=== PATIENT | male | born 1955 | race Caucasian/White ===

== ENCOUNTER 2018-11-13 17:40 | Inpatient (IN) | payer OTHER ==
[2018-11-13 18:54] LABS: Hemoglobin 11.4 g/dL (14.0-18.0); Mean Corpuscular HGB CONC 34.4 g/dL (32.0-36.0); Mean Corpuscular Hemoglobin 30.5 pg (27.0-31.0); Mean Corpuscular Volume 88.8 fL (78.0-98.0); Mean Platelet Volume 7.5 fL (7.4-10.4); Platelet Count 132 thou/uL (130-400); RBC Distribution Width 15.3 % (11.5-14.5); Red Blood Cell (RBC) Count 3.74 mill/uL (4.70-6.10); White Blood Cell (WBC) Count 7.6 thou/uL (4.8-10.8)
[2018-11-13 19:09] LABS: Anisocytosis SLIGHT = 6-15 cells (100X) (0-5/hpf); Eosinophils 1 % (0-10); Lymphocytes 11 % (21-51); MDiff Complete? YES; Monocytes 12 % (0-10); Neutrophil 76 % (42-75); PLT Morphology Comment Appears Adequate; Polychromasia SLIGHT = 2-3 cells (100X) (0-2/hpf)
[2018-11-13 19:11] LABS: ALT (SGPT) 35 U/L (8-55); AST (SGOT) 43 U/L (5-34); Albumin 3.2 g/dL (3.4-4.8); Alkaline Phosphatase 134 U/L (40-150); Anion Gap 15 mmol/L (10-20); BUN (Urea Nitrogen) 44 mg/dL (8.4-25.7); Bilirubin, Total 1.4 mg/dL (0.2-1.2); Calc. Creatinine Clearance 0 mL/min (70-130); Calcium 8.9 mg/dL (7.8-10.44); Carbon Dioxide 16 mmol/L (23-31); Chloride 96 mmol/L (98-107); Estimated GFR-MDRD 40; Globulin 3.6 g/dL (2.4-3.5); Glucose 102 mg/dL (80-115); Potassium 5.4 mmol/L (3.5-5.1); Protein, Total 6.8 g/dL (5.8-8.1); Sodium 122 mmol/L (136-145)
--- NOTE | 2018-11-13 19:12 | CT ---
CT BRAIN 11/13/18 PROVIDED CLINICAL HISTORY: Altered mental status. FINDINGS: The ventricular system appears normal in size and morphology. There is no evidence for intracranial h emorrhage or mass effect. The extracranial soft tissues and osseous structures demonstrate an unremar kable CT appearance. IMPRESSION: No evidence for intracranial hemorrhage or mass effect. POS: AICHA
[2018-11-13] MEDS ORDERED: Naloxone HCl 0.4 mg/ml Vial ONE ×2 (21:04→22:59)
[2018-11-13] MEDS ORDERED: Sodium Chloride 0.9% 1,000 ML IV SCH ×2 (21:45)
[2018-11-14 01:52] LABS: Bilirubin Negative (Negative); Blood, Urine Negative (Negative); Clarity CLEAR (Clear); Glucose, Urine (Dipstick) Negative (Negative); Leukocyte Negative (Negative); Nitrite Negative (Negative); Protein, Urine (Dipstick) Negative (Neg-Trace); Specific Gravity, Urine 1.015 (1.002-1.036); Urobilinogen 0.2 mg/dL (0.2-1.0)
--- NOTE | 2018-11-14 03:10 | HP ---
CHIEF COMPLAINT: Altered mental status. HISTORY OF PRESENT ILLNESS: This patient is a 63-year-old, [facility] inmate from the [facility]. The patient was apparently brought to the emergency department because of altered mental status. The patient was initially unable to give any history. However, his initial lab work indicated significant hyponatremia, mild hyperkalemia, ammonia level that was 82, and it was felt the patient might be having some hepatic encephalopathy. In the emergency department, the patient became somewhat bradypnic and borderline hypotensive. In reviewing his medication list, it was apparent that the patient was on some long-acting morphine. Therefore, he received a dose of Narcan. Subsequent to that, the patient has awakened somewhat and was able to give me some minimal amount of history at least. The patient reports that he has only been on the morphine for a couple of days. In reviewing his records from [facility], it does appear that this was actually prescribed yesterday. He also admits to having a history of hepatitis with cirrhosis. He has had hospitalizations in the past related to his liver. He denies having any knowledge of any prior renal disease. REVIEW OF SYSTEMS: Largely unobtainable at this point, although the patient does admit that he has been losing weight. He is still a bit groggy and unable to give a whole lot of other detailed history. PAST MEDICAL HISTORY: Again notable for known cirrhosis secondary to hepatitis C and chronic back pain. He denies ever having had any prior surgeries. SOCIAL HISTORY: The patient admits to history of alcohol, tobacco, and drug abuse, but cannot get more details. FAMILY HISTORY: Essentially unobtainable. He is not giving any indication that there is any significant family history. ALLERGIES: CARBAMAZEPINE. MEDICATIONS: 1. Osmolite liquid daily. 2. Promethazine 25 mg 1 p.o. b.i.d. p.r.n. 3. Proventil HFA 2 puffs q.i.d. p.r.n. 4. Aldactone 25 mg, record indicates that 8 tablets 2 times a day. 5. Thiamine 100 mg 1 p.o. daily. 6. Atrovent 2 puffs q.i.d. 7. Baclofen 10 mg daily. 8. Duloxetine 60 mg daily. 9. Folic Acid 1 mg daily. 10. Lasix 40 mg b.i.d. 11. Lactulose 40 g q.i.d. 12. Levothyroxine 25 mcg daily. 13. Morphine 15 mg p.o. b.i.d. PHYSICAL EXAMINATION: VITAL SIGNS: Most recent set of vital signs recorded, BP 196/72, pulse 91, respirations 16, temperature 97.7, O2 saturation 98% on 2 L. The patient has improved respiratory rate following the Narcan. GENERAL APPEARANCE: The patient is a male who appears older than his stated age. He is still fairly somnolent, but appears to be slowly improving. He is in no distress. HEENT: Pupils are midpoint and modestly reactive. He has no OP lesions, but very dry oral mucosa. NECK: Supple and symmetric. HEART: Regular rate and rhythm without murmurs. LUNGS: Clear bilaterally, although he is not able to fully cooperate with exam. ABDOMEN: Soft and nondistended. He indicates some mild discomfort in the right upper quadrant, but that is all. There are no masses palpable. EXTREMITIES: Dry without cyanosis, clubbing, or edema. His lower extremities are slightly cool to touch. LABORATORY DATA: White count 7.6, hemoglobin 11.4, platelets 132, 76% neutrophils, 11 lymphocytes, 12 monocytes. Sodium 122, potassium 5.4, chloride 96, CO2 is 16, BUN 44, creatinine is 1.75, glucose 102, calcium 8.9, total bilirubin 1.4, AST 43, ALT is 35, alkaline phosphatase 134, ammonia 86, albumin 3.2. CT scan of the brain, no evidence of any acute processes. EKG, no ischemic changes. IMPRESSION AND PLAN: 1. Altered mental status. It appears at this point that the patient is experiencing sedation from the newly started opioids. He has responded reasonably well to 0.4 of Narcan. We will go ahead and keep him in observation and admitted to the hospital. I will hold any sedating medications. We will give additional Narcan should he become bradypnic again. 2. Hyponatremia. It is unclear if this is the patient's baseline. I suspect it is secondary to both intravascular depletion from dehydration on the diuretics and possibly poor p.o. intake as well as his chronic liver disease. We will gently hydrate. Hold his diuretics and see how he will look tomorrow. 3. Mild hyperkalemia, also likely due to some intravascular depletion and prerenal azotemia. We will hydrate and re-evaluate in the morning. We will also give a little bit of hydrocortisone given low sodium and high potassium as well as his borderline blood pressures. 4. Prerenal azotemia secondary to intravascular depletion and dehydration. The patient is on diuretics and looks like he has probably had some poor p.o. intake. We will gently hydrate and re-evaluate in the morning. 5. Chronic liver disease with hepatitis and cirrhosis. We will continue the patient on his lactulose. 6. Hyperammonemia. The patient actually does not appear to be overly encephalopathic. When he can get awaken up, he is actually answering questions fairly appropriately. Therefore, I am going to keep him on his lactulose and recheck his levels in the morning. He may need some rifaximin, however, not clear that is going to be indicated at this time. 7. Suspect the patient has hypothyroidism given his thyroid medication. We will continue with that. 8. Chronic back pain, holding his baclofen and morphine until he can come more awake. Once he does, he will probably need to go back on the baclofen to avoid any significant withdrawal. It is unclear if that is new or old to his regimen. DISPOSITION: We will keep the patient full code as I do not think he can adequately have conversation regarding code status at this time. Job ID: [id number]
[2018-11-14 03:52] LABS: #Eosinphils 0.1 thou/uL (0.0-0.7); #Lymphocytes 1.1 thou/uL (1.20-3.40); #Monocytes 1.2 thou/uL (0.11-0.59); #Neutrophils 5.6 thou/uL (1.40-6.50); %Basophils 0.4 % (0.0-1.0); %Eosinophils 0.8 % (0.0-10.0); %Lymphocytes 13.5 % (21.0-51.0); %Monocytes 14.9 % (0.0-10.0); %Neutrophils 70.4 % (42.0-75.0); Mean Corpuscular HGB CONC 34.7 g/dL (32.0-36.0); Mean Corpuscular Hemoglobin 30.9 pg (27.0-31.0); Mean Corpuscular Volume 89.1 fL (78.0-98.0); Mean Platelet Volume 7.8 fL (7.4-10.4); Platelet Count 126 thou/uL (130-400); RBC Distribution Width 15.3 % (11.5-14.5); Red Blood Cell (RBC) Count 3.57 mill/uL (4.70-6.10); White Blood Cell (WBC) Count 7.9 thou/uL (4.8-10.8)
[2018-11-14 04:11] LABS: ALT (SGPT) 35 U/L (8-55); AST (SGOT) 39 U/L (5-34); Albumin 3.1 g/dL (3.4-4.8); Alkaline Phosphatase 126 U/L (40-150); Anion Gap 16 mmol/L (10-20); BUN (Urea Nitrogen) 43 mg/dL (8.4-25.7); Bilirubin, Total 1.4 mg/dL (0.2-1.2); Calc. Creatinine Clearance 0 mL/min (70-130); Carbon Dioxide 17 mmol/L (23-31); Chloride 99 mmol/L (98-107); Estimated GFR-MDRD 40; Globulin 3.4 g/dL (2.4-3.5); Glucose 97 mg/dL (80-115); Potassium 5.6 mmol/L (3.5-5.1); Protein, Total 6.5 g/dL (5.8-8.1); Sodium 126 mmol/L (136-145)
[2018-11-14] MEDS ORDERED: Hydrocortisone Sod Succ/PF 100 mg/2 ml Vial ONE ×2 (09:25→15:01)
[2018-11-14] MEDS ORDERED: Folic Acid 1 MG TAB ONE (09:25)
--- NOTE | 2018-11-14 14:14 | CON ---
DATE OF CONSULTATION: 11/14/2018 GI INPATIENT CONSULTATION NOTE. REQUESTING PHYSICIAN: Pasha Christensen MD REASON FOR CONSULTATION: Hepatic encephalopathy. HISTORY OF PRESENT ILLNESS: Reinaldo García is a 63-year-old man, an inmate from [facility], who was transferred here to the emergency department last night with altered mental status. The patient is really not able to give any significant history. He is awake, but not really alert. He can answer directed questions if asked repeatedly, but not with any specificity. Apparently, he had been started on long-acting morphine just within the past few days. Upon presentation, he was having slow respirations and evidently responded fairly well at least initially to Narcan. He had a CT head, which showed no acute processes and labs demonstrated some electrolyte abnormalities including hyponatremia and hyperkalemia as well as elevated ammonia level. Lactulose is on his medication list. He really cannot tell me anything about his prior history. I asked if he had a liver problem and he said yes. I asked what the problem was and he said cancer. This was the first I had heard of this and I really have very limited records to go on. His cirrhosis is evidently secondary to hepatitis C. He does have thrombocytopenia and mild elevation in total bilirubin which are consistent with cirrhosis. PAST MEDICAL HISTORY: 1. Cirrhosis, apparently secondary to hepatitis C. 2. Chronic back pain. REVIEW OF SYSTEMS: Unable to obtain complete review of systems due to the patient's altered mental status. SOCIAL HISTORY: He admits to prior history of smoking and alcohol abuse. He denies drug abuse other than cigarettes. ALLERGIES: CARBAMAZEPINE. OUTPATIENT MEDICATIONS: 1. Osmolite liquid daily. 2. Promethazine p.r.n. 3. Proventil HFA two puffs q.i.d. p.r.n. 4. Aldactone, record states 200 mg twice daily. 5. Lasix 40 mg twice daily. 6. Thiamine 100 mg daily. 7. Atrovent inhaler. 8. Baclofen 10 mg daily. 9. Duloxetine 60 mg daily. 10. Folic acid 1 mg daily. 11. Lactulose 40 g q.i.d. 12. Levothyroxine 25 mcg daily. 13. Morphine 15 mg p.o. b.i.d. PHYSICAL EXAMINATION: VITAL SIGNS: Blood pressure 120/76, pulse 94, and 100% oxygen saturation on 2 L nasal cannula. GENERAL: Thin, 63-year-old man, sitting up in bed comfortably, in no distress. He is awake, but not very alert. He is oriented to person, but not place or time. He can give only very limited details about current symptoms and history. MENTAL STATUS: He is able to follow simple commands and give only limited detailed history. He does not answer all questions and has to be constantly redirected. SKIN: No jaundice. No rashes were visible or palpable. Multiple tattoos to the torso and arms. EYES: No scleral icterus. Extraocular movements intact. ENT: Mucous membranes moist. No oral lesions. LYMPH: No submandibular or supraclavicular lymphadenopathy. THYROID: Nontender to palpation. HEART: Regular rate and rhythm. LUNGS: Clear to auscultation bilaterally. ABDOMEN: Nondistended. Bowel sounds present. Soft and nontender to palpation. EXTREMITIES: No peripheral edema. VESSELS: Radial pulses 2+ bilaterally. NEUROLOGIC: Cranial nerves 2 through 12 are intact bilaterally. He moves all extremities well. No asterixis. LABORATORY STUDIES: WBC is 7.9, hemoglobin 11.0, platelets 126. Sodium 126, potassium 5.6, BUN 43, creatinine 1.76. Total bilirubin 1.4, alkaline phosphatase 126, AST 39, ALT 35, albumin 3.1, ammonia 88. BNP 18. Urinalysis negative. IMAGING STUDIES: CT of the head showed no acute processes. ASSESSMENT AND PLAN: 1. Hepatic encephalopathy, recurrent. The patient is on quite a large dose of lactulose at least by reviewing his outside medication record sheet. So, he likely has a prior diagnosis of hepatic encephalopathy. The elevated ammonia level is consistent. Some of this may be multifactorial though, secondary to him just having started long-acting morphine. It is unclear what his baseline renal function is as well. It is unclear what his adherence to lactulose is. I would continue with the lactulose q.i.d. at this time. Go ahead and add rifaximin 550 mg twice daily as well. 2. Cirrhosis, apparently secondary to hepatitis C. His presentation is certainly consistent with cirrhosis. I am not sure it is necessary to perform full liver workup here as this has likely already been done and he is followed within the [facility] system. However, given that he states he has apparently been told he has liver cancer, we ought to look into this. It may just be that he is confused. But, we will get an abdominal ultrasound and an AFP level with tomorrow's labs. Thank you for the consultation. Please call anytime with questions or concerns. Job ID: [id number]
[2018-11-14 14:36] LABS: Anion Gap 13 mmol/L (10-20); BUN (Urea Nitrogen) 43 mg/dL (8.4-25.7); Calc. Creatinine Clearance 0 mL/min (70-130); Calcium 9.1 mg/dL (7.8-10.44); Carbon Dioxide 20 mmol/L (23-31); Chloride 98 mmol/L (98-107); Estimated GFR-MDRD 39; Glucose 114 mg/dL (80-115); Potassium 5.9 mmol/L (3.5-5.1); Sodium 125 mmol/L (136-145)
[2018-11-14] MEDS: Levothyroxine Sodium 25 MCG TAB PO SCH (15:47)
[2018-11-14] MEDS: Folic Acid 1 MG TAB PO SCH (15:48)
[2018-11-14] MEDS: DULoxetine 60 MG CAP PO SCH (15:49)
[2018-11-14] MEDS: Hydrocortisone Sod Succ/PF 100 mg/2 ml Vial IVP SCH ×4 (17:32→21:28)
[2018-11-14] MEDS: Sodium Bicarbonate 100 MEQ in Sodium Chloride 0.45% 1,000 ML IV SCH (17:51)
[2018-11-14 20:05] VITALS: BMI 20.4
[2018-11-14] MEDS: Rifaximin 550 MG TAB PO SCH (21:28)
--- NOTE | 2018-11-14 21:36 | PDOC.PN ---
- Subjective Encounter Start Date: 11/14/18 Encounter Start Time: 08:30 Patient seen and examined for Encephalopathy. Somnolent. No new complaints. No overnight events - Objective Resuscitation Status - Order Detail: 11/13/18 21:32 Resuscitation Status Routine Resuscitation Status: FULL: Full Resuscitation MAR Reviewed: Yes Vital Signs & Weight: Vital Signs (12 hours) Temp Pulse Resp BP Pulse Ox 11/14/18 16:45 98.0 F 99 16 136/69 100 Weight Weight 138 lb 8 oz Result Diagrams: 11/15/18 05:44 11/15/18 05:44 Additional Labs: Laboratory Tests 11/14/18 11/14/18 03:40 14:10 Potassium 5.6 H 5.9 H EKG Reviewed by me: Yes (Tele SR) Phys Exam - Physical Examination Constitutional: NAD HEENT: PERRLA, moist MMs Neck: no nodes, no JVD Respiratory: no wheezing, no rales, no rhonchi, clear to auscultation bilateral Cardiovascular: RRR, no rub no heaves/pulsations Gastrointestinal: soft, non-tender, no distention, positive bowel sounds no guarding/rigidity Musculoskeletal: no edema, pulses present Neurological: non-focal, normal sensation, moves all 4 limbs Flapping tremors + Psychiatric: normal affect, A&O x 3 (slow to respond) Skin: no rash Dx/Plan (1) Hepatic encephalopathy Code(s): K72.90 - HEPATIC FAILURE, UNSPECIFIED WITHOUT COMA Status: Acute Comment: (Toxic Metabolic Encephalopathy) (2) Chronic hepatitis C with cirrhosis Code(s): B18.2 - CHRONIC VIRAL HEPATITIS C; K74.60 - UNSPECIFIED CIRRHOSIS OF LIVER Status: Acute (3) HANH (acute kidney injury) Code(s): N17.9 - ACUTE KIDNEY FAILURE, UNSPECIFIED Status: Acute (4) Hyperkalemia Code(s): E87.5 - HYPERKALEMIA Status: Acute (5) Chronic pain syndrome Code(s): G89.4 - CHRONIC PAIN SYNDROME Status: Chronic (6) Depression Code(s): F32.9 - MAJOR DEPRESSIVE DISORDER, SINGLE EPISODE, UNSPECIFIED Status : Chronic (7) Hypothyroidism Code(s): E03.9 - HYPOTHYROIDISM, UNSPECIFIED Status: Chronic - Plan DVT proph w/SCDs * Add bicarb to IVF * AM labs * Consult GI * Cont Lactulose * Cont Stress dose steroids - started on admission * Hold Narcotics * Repeat labs later today Review of Systems - Review of Systems Cardiovascular: negative: chest pain, palpitations, orthopnea, paroxysmal nocturnal dyspnea, edema, light headedness, other Gastrointestinal: negative: Nausea, Vomiting, Abdominal Pain, Diarrhea, Constipation, Melena, Hematochezia, Other - Medications/Allergies Allergies/Adverse Reactions: Allergies Allergy/AdvReac Type Severity Reaction Status Date / Time carbamazepine Allergy Verified 11/14/18 18:38 Medications: Current Medications Albuterol/Ipratropium (Duoneb) 3 ml NEB [id number] PRN PRN Reason: SOB &/or Wheezing Duloxetine HCl (Cymbalta) 60 mg PO DAILY [facility] Last Admin: 11/14/18 15:49 Dose: Not Given Folic Acid (Folvite) 1 mg PO DAILY [facility] Last Admin: 11/14/18 15:48 Dose: Not Given Hydrocortisone Sodium Succinate (Solu-Cortef) 50 mg IVP 0300,0900,1500,2100 [facility] Last Admin: 11/14/18 21:28 Dose: 50 mg Sodium Bicarbonate 100 meq/ (Sodium Chloride) 1,100 mls @ 75 mls/hr IV .[id number] [facility] Last Admin: 11/14/18 17:51 Dose: Not Given Lactulose (Lactulose) 40 gm PO QID [facility] Last Admin: 11/14/18 21:28 Dose: 40 gm Levothyroxine Sodium (Synthroid) 25 mcg PO 0600 [facility] Last Admin: 11/14/18 15:47 Dose: Not Given Rifaximin (Xifaxan) 550 mg PO BID [facility] Last Admin: 11/14/18 21:28 Dose: 550 mg Sodium Chloride (Flush - Normal Saline) 10 ml IVF Q12HR [facility] Last Admin: 11/14/18 21:30 Dose: Not Given Sodium Chloride (Flush - Normal Saline) 10 ml IVF PRN PRN PRN Reason: Saline Flush Last Admin: 11/14/18 17:51 Dose: 10 ml Thiamine HCl (Thiamine) 100 mg PO DAILY [facility] Last Admin: 11/14/18 15:49 Dose: Not Given
[2018-11-15] MEDS: Hydrocortisone Sod Succ/PF 100 mg/2 ml Vial IVP SCH ×2 (03:29→08:25)
[2018-11-15] MEDS: Sodium Bicarbonate 100 MEQ in Sodium Chloride 0.45% 1,000 ML IV SCH ×2 (03:30→17:20)
[2018-11-15 06:20] LABS: #Lymphocytes 0.4 thou/uL (1.20-3.40); #Monocytes 0.4 thou/uL (0.11-0.59); #Neutrophils 5.7 thou/uL (1.40-6.50); %Basophils 0.3 % (0.0-1.0); %Eosinophils 0.1 % (0.0-10.0); %Lymphocytes 5.4 % (21.0-51.0); %Monocytes 5.8 % (0.0-10.0); %Neutrophils 88.4 % (42.0-75.0); Hemoglobin 10.5 g/dL (14.0-18.0); Mean Corpuscular HGB CONC 34.1 g/dL (32.0-36.0); Mean Corpuscular Hemoglobin 30.2 pg (27.0-31.0); Mean Corpuscular Volume 88.4 fL (78.0-98.0); Mean Platelet Volume 7.5 fL (7.4-10.4); Platelet Count 106 thou/uL (130-400); RBC Distribution Width 15.4 % (11.5-14.5); Red Blood Cell (RBC) Count 3.47 mill/uL (4.70-6.10); White Blood Cell (WBC) Count 6.5 thou/uL (4.8-10.8)
[2018-11-15 06:39] LABS: Phosphorus 3.1 mg/dL (2.3-4.7)
[2018-11-15 06:43] LABS: ALT (SGPT) 32 U/L (8-55); AST (SGOT) 38 U/L (5-34); Albumin 3.1 g/dL (3.4-4.8); Alkaline Phosphatase 119 U/L (40-150); Anion Gap 15 mmol/L (10-20); BUN (Urea Nitrogen) 43 mg/dL (8.4-25.7); Bilirubin, Total 1.6 mg/dL (0.2-1.2); Calc. Creatinine Clearance 45 mL/min (70-130); Calcium 8.9 mg/dL (7.8-10.44); Carbon Dioxide 21 mmol/L (23-31); Chloride 97 mmol/L (98-107); Estimated GFR-MDRD 45; Globulin 3.5 g/dL (2.4-3.5); Glucose 108 mg/dL (80-115); Magnesium 2.2 mg/dL (1.6-2.6); Protein, Total 6.6 g/dL (5.8-8.1); Sodium 128 mmol/L (136-145)
[2018-11-15] MEDS: Folic Acid 1 MG TAB PO SCH (08:24)
[2018-11-15] MEDS: DULoxetine 60 MG CAP PO SCH (08:24)
[2018-11-15] MEDS: Levothyroxine Sodium 25 MCG TAB PO SCH (08:24)
[2018-11-15] MEDS: Rifaximin 550 MG TAB PO SCH ×2 (08:26→22:10)
--- NOTE | 2018-11-15 08:26 | ULT ---
GALLBLADDER ULTRASOUND: HISTORY: Cirrhosis. Evaluate for hepatic masses. The patient states he was diagnosed with liver cancer. COMPARISON: None. TECHNIQUE: Utilizing a Multi-Hertz transducer, sonographic imaging of the right upper quadrant was performed in the longitudinal and transverse planes. FINDINGS: Examination is markedly limited. Limited evaluation of the pancreas and liver. If there is concern for hepatic masses, a CT scan be performed. There is a hypoechoic focus involving the lower pole of the right kidney, incompletely evaluated. Gr ossly, no hydronephrosis. Grossly, no evidence of cholecystitis. IMPRESSION: Limited evaluation. If there is concern, consider CT. CT should be performed using a liver mass pro tocol. POS: GEOVANNI
--- NOTE | 2018-11-15 14:04 | PRG ---
DATE OF SERVICE: 11/15/2018 GI INPATIENT DAILY PROGRESS NOTE SUBJECTIVE: Mr. García is much more awake today. He is able to converse and answer questions appropriately. He complains of a bit of right-sided abdominal pain, which he says it is chronic and has been characterized as secondary to his liver disease in the past. He has not had a bowel movement yet today. He is feeling hungry and ready to start his diet. He again tells me that he believes he was told that he probably had liver cancer, but he cannot recall any proposed treatment plan or any other details regarding this. He has seen cash surrender calculator down in [place]. OBJECTIVE: VITAL SIGNS: Temperature 98.4, pulse 102, blood pressure 100/62, and 99% oxygen saturation on room air. GENERAL: No acute distress. HEART: Regular rate and rhythm. LUNGS: Clear to auscultation bilaterally. ABDOMEN: Nondistended. Bowel sounds present. Soft. Some tenderness to palpation in the right abdomen. No guarding or rebound tenderness. EXTREMITIES: No peripheral edema. LABORATORY STUDIES: WBC 6.5, hemoglobin 10.5, platelets 106. Sodium 128, potassium 5.0, BUN 43, creatinine down to 1.56. Total bilirubin 1.6, alkaline phosphatase 119, AST 38, ALT 32, phosphorus 3.1, albumin 3.1, and AFP is only 2.9. IMAGING STUDIES: Abdominal ultrasound was performed early this morning. This was a limited quality study. There is no evidence of cholecystitis. No liver lesion visualized. ASSESSMENT AND PLAN: 1. Hepatic encephalopathy. His acute presentation was likely secondary to combination of hepatic encephalopathy and over-sedation from morphine. I would advise avoiding narcotics if at all possible in this gentleman. Continue lactulose, titrate to 3 to 4 loose bowel movements per day. I would recommend if possible that rifaximin 550 mg b.i.d. be continued even after discharge from the hospital. 2. Cirrhosis, apparently secondary to chronic hepatitis C. He is followed by cash surrender calculator in the [facility] system down in [place]. We are not going to pursue any further extensive liver workup while here. He tells me he was diagnosed with liver malignancy. I do not really see any evidence of that based on our ultrasound and AFP level, but certainly he does need close followup with [facility] surrender [facility] in [place] after hospital discharge. 3. Acute kidney injury. Creatinine is improved today. His intake medication list had Lasix 40 mg b.i.d. and spironolactone 200 mg b.i.d. I agree with Dr. Astorga that we should probably decrease the diuretic doses. The plan is to decrease Lasix to 40 mg daily and spironolactone to 100 mg daily. Again, he needs close followup with his cash surrender calculator after discharge. Given the significant improvement in his mental status, GI will sign off at this time. Dr. Gutierrez is on-call over the weekend if any questions arise. Job ID: [id number]
--- NOTE | 2018-11-16 00:06 | PRG ---
DATE OF SERVICE: 11/15/2018 SUBJECTIVE: The patient denies any new complaints. His mentation has significantly improved. He denies any headache, double vision, or focal neurologic deficit. Able to answer appropriately. Telemetry monitoring by my review showed sinus rhythm. MEDICATIONS: Current medications were reviewed. The patient is currently on lactulose, rifaximin, as well as diuretics. He is also on stress-dose steroid. OBJECTIVE: VITAL SIGNS: Temperature 98.4, pulse rate of 102, respirations 16, blood pressure 107/62 with O2 saturation 99% on room air. GENERAL: A 63-year-old male, in no apparent distress. LUNGS: Clear to auscultation bilaterally. No wheezing, rales, or rhonchi. HEART: S1 and S2 present. Regular rate and rhythm. ABDOMEN: Soft and nontender. Bowel sounds present. No rebound or guarding. EXTREMITIES: No edema or calf tenderness. NEUROLOGIC: Grossly nonfocal. No flapping tremors noted. LABORATORY DATA: Lab findings; WBC 6.5 with hemoglobin 10.5, and platelet 106. Chemistry showed sodium 128, potassium 5, BUN 43, and creatinine 1.56. Baseline creatinine unknown. Alpha-fetoprotein was 2.9, phosphorus 3.1, and magnesium 2.2. Abdominal ultrasound was limited. IMPRESSION: 1. Toxic metabolic encephalopathy/hepatic encephalopathy, improved. 2. Acute kidney injury on chronic kidney disease stage 3, improving with IV fluids. 3. Chronic hepatitis C with cirrhosis. 4. Hyperkalemia, improving. 5. Chronic pain syndrome. Please note, narcotics have been discontinued. 6. Depression without any suicidal ideation. 7. Abnormal LFTs, probably secondary to cirrhosis. 8. Hypothyroidism. 9. Hyponatremia, improving. 10. Metabolic acidosis secondary to renal failure. 11. Chronic anemia. 12. Thrombocytopenia. PLAN: The patient will be transferred to medical floor. We will continue lactulose and rifaximin. Continue gentle IV hydration. We will recheck labs in a.m. We will discontinue stress-dose steroid. We will continue all other home medications. Plan of care was discussed with Gastroenterology Service. Job ID: [id number]
[2018-11-16] MEDS: Sodium Bicarbonate 100 MEQ in Sodium Chloride 0.45% 1,000 ML IV SCH (06:13)
[2018-11-16] MEDS: Levothyroxine Sodium 25 MCG TAB PO SCH (06:15)
[2018-11-16 06:56] LABS: Anion Gap 11 mmol/L (10-20); BUN (Urea Nitrogen) 43 mg/dL (8.4-25.7); Calc. Creatinine Clearance 55 mL/min (70-130); Calcium 8.5 mg/dL (7.8-10.44); Carbon Dioxide 27 mmol/L (23-31); Chloride 94 mmol/L (98-107); Estimated GFR-MDRD 57; Glucose 91 mg/dL (80-115); Magnesium 2.1 mg/dL (1.6-2.6); Phosphorus 2.2 mg/dL (2.3-4.7); Potassium 4.3 mmol/L (3.5-5.1); Sodium 128 mmol/L (136-145)
[2018-11-16 07:27] LABS: Eosinophils 1 % (0-10); Hemoglobin 10.3 g/dL (14.0-18.0); Lymphocytes 12 % (21-51); MDiff Complete? YES; Mean Corpuscular HGB CONC 33.7 g/dL (32.0-36.0); Mean Corpuscular Hemoglobin 29.8 pg (27.0-31.0); Mean Corpuscular Volume 88.4 fL (78.0-98.0); Mean Platelet Volume 7.3 fL (7.4-10.4); Monocytes 14 % (0-10); Neutrophil 73 % (42-75); PLT Morphology Comment Appears Decreased; Platelet Count 83 thou/uL (130-400); RBC Distribution Width 15.3 % (11.5-14.5); Red Blood Cell (RBC) Count 3.46 mill/uL (4.70-6.10); White Blood Cell (WBC) Count 8.4 thou/uL (4.8-10.8)
[2018-11-16 07:53] VITALS: BP 107/69; TEMP 98.2
[2018-11-16] MEDS: DULoxetine 60 MG CAP PO SCH (09:09)
[2018-11-16] MEDS: Rifaximin 550 MG TAB PO SCH (09:09)
[2018-11-16] MEDS: Folic Acid 1 MG TAB PO SCH (09:10)
--- NOTE | 2018-11-16 13:39 | DIS ---
DATE OF ADMISSION: 11/13/2018 DATE OF DISCHARGE: 11/16/2018 DISCHARGE DISPOSITION: The patient is an inmate. DISCHARGE MEDICATIONS: 1. Lasix 40 mg daily. 2. Aldactone 100 mg daily. 3. Rifaximin 550 mg b.i.d. 4. Levothyroxine 25 mcg daily. 5. Lactulose 4 times a day for at least 4 bowel movements daily. 6. Albuterol inhaler as needed. 7. Baclofen 10 mg at bedtime. 8. Cymbalta 60 mg daily. 9. Folic acid 1 mg daily. 10. Albuterol inhaler 4 times a day. The patient was seen and examined on the day of discharge. Denies any new complaints. No chest pain, shortness of breath, palpitations, or altered mentation reported. Vital signs on the day of discharge show temperature 98.2, pulse rate of 94, blood pressure 111/75, O2 saturation 99% on room air, and respirations of 18. BRIEF HOSPITAL COURSE: The patient is a 63-year-old inmate with chronic hepatitis C with cirrhosis and chronic back pain, who was recently started on long-acting morphine, presented to the emergency room with altered mentation. His workup was consistent with acute kidney injury with hepatic encephalopathy. His ammonia level was 86 with creatinine of 1.75 and potassium 5.4. His sodium was 122 as well. Please refer to the history and physical for further details. The patient was admitted to the hospital with a diagnosis of acute kidney injury with hepatic encephalopathy. Diuretics were held. He was started on IV fluids. He showed good improvement with lactulose and rifaximin. The patient was evaluated by Gastroenterology, Dr. Nicholas. His alpha fetoprotein was 2.9. The right upper quadrant ultrasound was done that was a limited study. He will benefit from a CT scan using liver mass protocol as outpatient once his renal function improves. Primary care physician advised to follow. He will also benefit from Gastroenterology evaluation. His sodium has improved to 128. Potassium is down to 4.3. He would require a basic metabolic profile after 1 week. He appears stable for discharge. We will continue lactulose, titrating for at least 4 bowel movements everyday. FINAL DIAGNOSES: 1. Toxic metabolic encephalopathy/hepatic encephalopathy. 2. Acute kidney injury on chronic kidney disease stage 3, improved. 3. Chronic hepatitis C with cirrhosis. 4. Hyperkalemia, resolved. 5. Chronic pain syndrome. Long-acting morphine has been discontinued. 6. Depression. 7. Abnormal LFTs probably secondary to cirrhosis. 8. Hypothyroidism. 9. Hyponatremia, improving. 10. Metabolic acidosis secondary to renal failure. 11. Chronic anemia. 12. Thrombocytopenia. PLAN: Plan was discussed with the patient. He stated understanding. Total time coordinating the discharge of this patient was 33 minutes. Job ID: [id number]
== END 2018-11-16 13:25 | DRG 441 ==
LOC: EEVIPCON 17:40 → ERS 17:40 → ERHOLD 22:00 → 2NO 11-14 16:32 → T4-A 11-15 17:08
PROVIDERS: ADMIT Internal Medicine; ATTEND Internal Medicine
DX: K72.90 Hepatic failure, unspecified without coma (principal); G92 Toxic encephalopathy; E87.1 Hypo-osmolality and hyponatremia; E72.20 Disorder of urea cycle metabolism, unspecified; N17.9 Acute kidney failure, unspecified; E87.2 Acidosis; E87.5 Hyperkalemia; K74.60 Unspecified cirrhosis of liver; M54.9 Dorsalgia, unspecified; F17.210 Nicotine dependence, cigarettes, uncomplicated; F10.10 Alcohol abuse, uncomplicated; E86.0 Dehydration; E03.9 Hypothyroidism, unspecified; B18.2 Chronic viral hepatitis C; F32.9 Major depressive disorder, single episode, unspecified; N18.3 Chronic kidney disease, stage 3 (moderate); G89.4 Chronic pain syndrome; D64.9 Anemia, unspecified
CPT/HCPCS: 36415; 36416; 70450; 76705; 80048; 80053; 81003; 82105; 82140; 83735; 83880; 84100; 85025; 93005; J1720; J2310